=== PATIENT | female | born 1960 | race Two or more races ===

== ENCOUNTER 2020-08-30 18:11 | Emergency (ER) | payer MEDICARE, MEDICAID ==
[~2020-08-30] VITALS: Ht 167.6 cm; Wt 95.3 kg
[2020-08-30] MEDS ORDERED: TETANUS-DIPTH-ACEL PERTUSSIS 0.5ML SYR Tdap IM ONE (23:00)
[2020-08-30] MEDS ORDERED: cefTRIAXone SOD 1,000 MG VL IM ONE (23:00)
[2020-08-31 00:04] VITALS: BP 108/60
== END 2020-08-31 00:13 | disposition home or self-care (01) ==
LOC: ER 18:12
DX: S91.312A Laceration without foreign body, left foot, initial encounter (principal); E11.9 Type 2 diabetes mellitus without complications; W01.198A Fall on same level from slipping, tripping and stumbling with subsequent striking against other object, initial encounter; Y93.89 Activity, other specified; Y92.090 Kitchen in other non-institutional residence as the place of occurrence of the external cause; Y99.8 Other external cause status
CPT/HCPCS: 12002; 73630; 90471; 90715; 96372; 99284; J0696

== ENCOUNTER 2020-09-01 08:17 | Emergency (ER) | payer MEDICARE, MEDICAID ==
[~2020-09-01] VITALS: Ht 167.6 cm; Wt 95.3 kg
[2020-09-01 09:36] VITALS: BP 134/58
== END 2020-09-01 09:40 | disposition home or self-care (01) ==
LOC: ER 08:17
DX: S91.312D Laceration without foreign body, left foot, subsequent encounter (principal); E11.9 Type 2 diabetes mellitus without complications; X58.XXXD Exposure to other specified factors, subsequent encounter

== ENCOUNTER 2020-09-09 08:40 | Emergency (ER) | payer MEDICARE, MEDICAID ==
[~2020-09-09] VITALS: Ht 167.6 cm; Wt 90.7 kg
[2020-09-09 09:56] VITALS: BP 106/32
== END 2020-09-09 10:40 | disposition home or self-care (01) ==
LOC: ER 08:40
DX: S91.312D Laceration without foreign body, left foot, subsequent encounter (principal); E11.9 Type 2 diabetes mellitus without complications; W18.39XD Other fall on same level, subsequent encounter